=== PATIENT | female | born 1965 | race Caucasian/White ===

== ENCOUNTER 2017-10-26 08:26 | Emergency (ER) | payer SELFPAY ==
[~2017-10-26] VITALS: Ht 167.6 cm; Wt 71.9 kg
[~2017-10-26 08:26] MED LIST: ADVA100A INH; AMIT25; BUTAPOW6 XX; CYMB60CA PO; FIORTAB4 PO; FLEX5TAB PO; FLUR15CA13 PO; LORA1TAB PO; SYNT25TA PO; VICOTAB4 PO
[2017-10-26 08:39] VITALS: BP 125/72; PULSE 115; RESP 18; TEMP 97.2; O2SAT 93
[2017-10-26 08:50] VITALS: BP 125/72; PULSE 114; RESP 16; TEMP 97.6; O2SAT 93
[2017-10-26] MEDS ORDERED: CYMB60CA PO (09:08)
[2017-10-26] MEDS ORDERED: TRAM50TA PO (09:08)
[2017-10-26] MEDS ORDERED: AMIT25TA9 PO (09:08)
[2017-10-26] MEDS ORDERED: CYCL10TA PO (09:08)
[2017-10-26] MEDS ORDERED: PANT40TA3 PO (09:08)
[2017-10-26] MEDS ORDERED: FLUR15CA13 PO (09:08)
[2017-10-26] MEDS ORDERED: RESP: ALBUTEROL 2.5 MG/IPRATROPIUM 0.5 MG NEB (SCH) NEB ONE (09:15)
[2017-10-26] MEDS ORDERED: methylPREDNISolone SOD SUCC 125 MG/2 ML VIAL IV PUSH ONE (09:15)
--- NOTE | 2017-10-26 09:18 | PD ---
HPI Chief Complaint: Respiratory Symptoms Time Seen by Provider: 09:09 Travel History International Travel<30 days: No Contact w/Intl Traveler<30days: No Traveled to known affect area: No History of Present Illness HPI This 52-year-old female says she has been sick for the last 3 days. She has been coughing up phlegm which is been yellow and thick at times. Last night she had some left-sided pleuritic pain was coughing a lot. She has never been diagnosed with COPD 1/2-3/4 pack per day of cigarettes. She has no history of asthma. She did have pneumonia several years ago. She says that 3 days ago she had fever which broke, she says it was 102. There has not been vomiting or diarrhea. There is no radiation of the pain. She has not noted anything that makes the pain worse. The pain is sharp PFSH Past Medical History Anxiety: Yes Depression: Yes Fibromyalgia: Yes Medical other: Yes (chronic pain has pain management) Respiratory: Yes (??) Tetanus Vaccination: Unknown Influenza Vaccination: No ?: Not Menopausal: Yes Tubal Ligation: Yes Past Surgical History Cholecystectomy: Yes Hysterectomy: Yes Other Surgery: Yes (CLEFT PALLET, GALLBLADER.) Social History Alcohol Use: No Tobacco Use: Yes (1/2- 1 PACK A DAY) Substance Use: No Allergies-Medications (Allergen,Severity, Reaction): Coded Allergies: azithromycin (Unverified Allergy, Mild, RASH/NAUSEA, 10/26/17) Reported Meds & Prescriptions Reported Meds & Active Scripts Active Reported Flurazepam (Flurazepam HCl) 15 Mg Cap 1 Cap PO HS Cymbalta DR (Duloxetine HCl) 60 Mg Capdr 60 Mg PO DAILY Amitriptyline (Amitriptyline HCl) 25 Mg Tab 25 Mg PO HS Pantoprazole (Pantoprazole Sodium) 40 Mg Tab 40 Mg PO DAILY Flexeril (Cyclobenzaprine HCl) 10 Mg Tab 10 Mg PO TID Tramadol (Tramadol HCl) 50 Mg Tab 50 Mg PO Q8H PRN Review of Systems General / Constitutional: Positive: Fever, Chills Eyes: No: Diploplia, Blurred Vision HENT: No: Headaches, Vertigo Cardiovascular: Positive: Chest Pain or Discomfort Respiratory: Positive: Cough, Shortness of Breath Gastrointestinal: No: Vomiting, Diarrhea Genitourinary: No: Urgency, Frequency Musculoskeletal: No: Myalgias, Arthralgias Skin: No Rash, No Itching Neurologic: No: Weakness Psychiatric: No: Anxiety Hematologic/Lymphatic: No: Easy Bruising Physical Exam Narrative GENERAL: Well-developed female SKIN: Focused skin assessment warm/dry. HEAD: Atraumatic. Normocephalic. EYES: Pupils equal and round. No scleral icterus. No injection or drainage. ENT: No nasal bleeding or discharge. Mucous membranes pink and moist. NECK: Trachea midline. No JVD. CARDIOVASCULAR: Regular rate and rhythm. No murmur appreciated. RESPIRATORY: No accessory muscle use. There are scattered wheezes breath sounds equal bilaterally. GASTROINTESTINAL: Abdomen soft, non-tender, nondistended. Hepatic and splenic margins not palpable. MUSCULOSKELETAL: No obvious deformities. No clubbing. No cyanosis. No edema. NEUROLOGICAL: Awake and alert. No obvious cranial nerve deficits. Motor grossly within normal limits. Normal speech. PSYCHIATRIC: Appropriate mood and affect; insight and judgment normal. Data Data Last Documented VS Vital Signs Date Time Temp Pulse Resp B/P (MAP) Pulse Ox O2 Delivery O2 Flow Rate FiO2 10/26/17 09:02 107 16 93 Room Air 10/26/17 08:50 97.6 125/72 (89) Orders Orders Complete Blood Count With Diff (10/26/17 09:13) Comprehensive Metabolic Panel (10/26/17 09:13) Blood Culture (10/26/17 09:13) Influenzae A/B Antigen (10/26/17 09:13) Chest, Single Ap (10/26/17 09:13) Methylprednisolone So Succ Inj (Solumedr (10/26/17 09:15) Albuterol-Ipratropium Neb (Duoneb Neb) (10/26/17 09:15) Electrocardiogram (10/26/17 08:46) Ceftriaxone Inj (Rocephin Inj) (10/26/17 11:15) Labs Laboratory Tests Test 10/26/17 09:30 White Blood Count 9.0 TH/MM3 Red Blood Count 4.76 MIL/MM3 Hemoglobin 13.9 GM/DL Hematocrit 41.7 % Mean Corpuscular Volume 87.6 FL Mean Corpuscular Hemoglobin 29.1 PG Mean Corpuscular Hemoglobin Concent 33.2 % Red Cell Distribution Width 12.8 % Platelet Count 325 TH/MM3 Mean Platelet Volume 8.4 FL CBC Comment AUTO DIFF Differential Total Cells Counted 100 Neutrophils % (Manual) 69 % Band Neutrophils % 5 % Lymphocytes % 19 % Monocytes % 6 % Eosinophils % 1 % Neutrophils # (Manual) 6.7 TH/MM3 Differential Comment FINAL DIFF MANUAL Platelet Estimate NORMAL Platelet Morphology Comment NORMAL Red Cell Morphology Comment NORMAL Blood Urea Nitrogen 6 MG/DL Creatinine 0.69 MG/DL Random Glucose 100 MG/DL Total Protein 7.9 GM/DL Albumin 3.8 GM/DL Calcium Level 9.1 MG/DL Alkaline Phosphatase 105 U/L Aspartate Amino Transf (AST/SGOT) 33 U/L Alanine Aminotransferase (ALT/SGPT) 39 U/L Total Bilirubin 0.3 MG/DL Sodium Level 140 MEQ/L Potassium Level 3.6 MEQ/L Chloride Level 107 MEQ/L Carbon Dioxide Level 27.2 MEQ/L Anion Gap 6 MEQ/L Estimat Glomerular Filtration Rate 89 ML/MIN [facility] Medical Decision Making Medical Screen Exam Complete: Yes Emergency Medical Condition: Yes Medical Record Reviewed: Yes Differential Diagnosis Differential includes COPD exacerbation, pneumonia, CHF Narrative Course Chest x-ray is negative for pneumonia. EKG shows sinus rhythm. She has been given neb treatments with some improvement. Impression is COPD exacerbation Diagnosis Primary Impression: COPD exacerbation Scripts Albuterol 18 GM Inh (Ventolin Hfa 18 GM Inh) 90 Mcg/Act Aer 2 PUFF INH Q4H Y for SHORTNESS OF BREATH, #1 INHALER 0 Refills Prov: Christiano Sanchez MD 10/26/17 Prednisone (Prednisone) 20 Mg Tab 20 MG PO DIRECTED, #24 TAB 0 Refills Take 60 MG daily x 4 days, then 40 MG x 4 days, then 20 MG daily x 4 days. Prov: Christiano Sanchez MD 10/26/17 Amoxicillin (Amoxicillin) 500 Mg Cap 500 MG PO TID for Infection for 7 Days, CAP 0 Refills Prov: Christiano Sanchez MD 10/26/17 Disposition: 01 DISCHARGE HOME Condition: Stable Christiano Sanchez MD Oct 26, 2017 09:18
[2017-10-26 09:53] LABS: HEMATOCRIT 41.7 % (35.0-46.0); HEMOGLOBIN 13.9 GM/DL (11.6-15.3); MEAN CELL VOLUME 87.6 FL (80.0-100.0); MEAN CORPUSCULAR HEMOGLOBIN 29.1 PG (27.0-34.0); MEAN CORPUSCULAR HGB CONC 33.2 % (32.0-36.0); MEAN PLATELET VOLUME 8.4 FL (7.0-11.0); PLATELET COUNT 325 TH/MM3 (150-450); RED BLOOD COUNT 4.76 MIL/MM3 (4.00-5.30); RED CELL DISTRIBUTION WIDTH 12.8 % (11.6-17.2)
[2017-10-26 10:00] VITALS: BP 122/69; PULSE 98; RESP 18; O2SAT 94
[2017-10-26 10:05] LABS: CHLORIDE 107 MEQ/L (98-107); SODIUM (NA) 140 MEQ/L (136-145)
[2017-10-26 10:09] LABS: CALCIUM 9.1 MG/DL (8.5-10.1)
[2017-10-26 10:10] LABS: ALBUMIN 3.8 GM/DL (3.4-5.0); BLOOD UREA NITROGEN 6 MG/DL (7-18); GLUCOSE,RANDOM 100 MG/DL (74-106)
[2017-10-26 10:11] LABS: BICARBONATE 27.2 MEQ/L (21.0-32.0)
[2017-10-26 10:13] LABS: ALT (GPT) 39 U/L (10-53); AST (GOT) 33 U/L (15-37); CREATININE 0.69 MG/DL (0.50-1.00); GLOMERULAR FILTRATION RATE 89 ML/MIN (>89)
[2017-10-26 10:14] LABS: TOTAL BILIRUBIN ADULT 0.3 MG/DL (0.2-1.0)
--- NOTE | 2017-10-26 10:14 | RADRPT ---
EXAM DATE/TIME: 10/26/2017 09:30 [facility] COMPARISON: No previous studies available for comparison. INDICATIONS : Cough MEDICAL HISTORY : Fibromyalgia SURGICAL HISTORY : Cholecystectomy. Hysterectomy. ENCOUNTER: Initial ACUITY: 3 days PAIN SCORE: 0/10 LOCATION: Bilateral chest FINDINGS: A single view of the chest demonstrates the lungs to be symmetrically aerated without evidence of mas s, infiltrate or effusion. The cardiomediastinal contours are unremarkable. Osseous structures are intact. CONCLUSION: No acute disease. There is no evidence of pneumonia. Dennis Ayon MD on October 26, 2017 at 10:11 Board Certified Radiologist. This report was verified electronically.
[2017-10-26 10:15] LABS: TOTAL PROTEIN 7.9 GM/DL (6.4-8.2)
[2017-10-26 10:16] LABS: ALKALINE PHOSPHATASE 105 U/L (45-117)
[2017-10-26 10:18] LABS: BANDS 5 % (0-6); LYMPHOCYTES 19 % (9-44); MONOCYTES 6 % (0-8); NEUTROPHIL # MANUAL DIFF 6.7 TH/MM3 (1.8-7.7); POLYS (SEG NEUTROPHILS) 69 % (16-70)
[2017-10-26] MEDS ORDERED: PRED20 PO (11:14)
[2017-10-26] MEDS ORDERED: AMOX500C PO (11:14)
[2017-10-26] MEDS ORDERED: VENTAER INH (11:14)
[2017-10-26] MEDS ORDERED: cefTRIAXone INJ 1,000 MG in SODIUM CHLORIDE 0.9% INJ 100 ML IV ONE (11:15)
[2017-10-26 12:11] VITALS: BP 108/71; PULSE 92; RESP 18; O2SAT 94
--- NOTE | 2017-10-27 00:01 | EKG ---
Date Performed: 10/26/2017 Time Performed: 08:46:01 PTAGE: 52 years EKG: SINUS TACHYCARDIA INDETERMINATE AXIS PATTERN CONSISTENT WITH PULMONARY DISEASE INCOMPLETE R IGHT BUNDLE BRANCH BLOCK ABNORMAL ECG NO PREVIOUS TRACING DOCTOR: Sampson Ricketts Interpretating Date/Time 10/26/2017 23:59:31
== END 2017-10-26 12:49 | disposition home or self-care (01) ==
LOC: PHED 08:26
DX: J44.1 Chronic obstructive pulmonary disease with (acute) exacerbation (principal); R00.0 Tachycardia, unspecified; I45.10 Unspecified right bundle-branch block; R94.31 Abnormal electrocardiogram [ECG] [EKG]; F41.9 Anxiety disorder, unspecified; F32.9 Major depressive disorder, single episode, unspecified; M79.7 Fibromyalgia; F17.200 Nicotine dependence, unspecified, uncomplicated; Z79.899 Other long term (current) drug therapy
CPT/HCPCS: 71045; 80053; 85007; 85027; 87040; 87804; 93005; 94664; 96365; 96375; 99285; J0696; J2930

== ENCOUNTER 2017-11-12 17:22 | Observation (INO) | payer SELFPAY ==
[2017-11-12] VITALS (7 sets, daily range): BP systolic 114–166; BP diastolic 64–97; PULSE 85–111; RESP 16–20; TEMP 96.8–98.7; O2SAT 95–97
[~2017-11-12] VITALS: Ht 167.6 cm; Wt 74.2 kg
[~2017-11-12 17:22] MED LIST changes: -ADVA100A INH; -AMIT25; +AMIT25TA9 PO; +AMOX500C PO; -BUTAPOW6 XX; +CYCL10TA PO; -FIORTAB4 PO; -FLEX5TAB PO; -LORA1TAB PO; +PANT40TA3 PO; +PRED20 PO; -SYNT25TA PO; +TRAM50TA PO; +VENTAER INH; -VICOTAB4 PO
--- NOTE | 2017-11-12 17:30 | PD ---
HPI Chief Complaint: Chest Pain Time Seen by Provider: 17:27 Travel History International Travel<30 days: No Contact w/Intl Traveler<30days: No Traveled to known affect area: No History of Present Illness HPI Patient comes in complaining of about a 3 hour onset of left-sided chest discomfort, 8 out of 10, described as pressure, started to worsen about 45 minutes ago, nonradiating, no alleviating or aggravating factors. Patient describes no associated factors such as fever, rash, nausea, vomiting, diarrhea , abdominal pain, back pain, flank pain. Stated allergy to azithromycin Past medical history significant for cholecystectomy, hysterectomy, COPD, fibromyalgia, tubal ligation, depression, anxiety, still smokes half a pack to 1 pack a day. PFSH Past Medical History Anxiety: Yes Depression: Yes Fibromyalgia: Yes Respiratory: Yes (??) Menopausal: Yes Tubal Ligation: Yes Past Surgical History Cholecystectomy: Yes Hysterectomy: Yes Other Surgery: Yes (CLEFT PALLET, GALLBLADER.) Social History Alcohol Use: No Tobacco Use: Yes (1/2- 1 PACK A DAY) Substance Use: No Allergies-Medications (Allergen,Severity, Reaction): Coded Allergies: azithromycin (Unverified Allergy, Mild, RASH/NAUSEA, 11/12/17) erythromycin base (Verified Allergy, Unknown, 11/12/17) Reported Meds & Prescriptions Reported Meds & Active Scripts Active Reported Metoprolol Tartrate 50 Mg Tab 50 Mg PO DAILY Flurazepam (Flurazepam HCl) 15 Mg Cap 1 Cap PO HS Cymbalta DR (Duloxetine HCl) 60 Mg Capdr 60 Mg PO DAILY Amitriptyline (Amitriptyline HCl) 25 Mg Tab 25 Mg PO HS Pantoprazole (Pantoprazole Sodium) 40 Mg Tab 40 Mg PO DAILY Flexeril (Cyclobenzaprine HCl) 10 Mg Tab 10 Mg PO TID Tramadol (Tramadol HCl) 50 Mg Tab 50 Mg PO Q8H PRN Review of Systems General / Constitutional: No: Fever Eyes: No: Visual changes HENT: No: Headaches Cardiovascular: Positive: Chest Pain or Discomfort Respiratory: No: Shortness of Breath Gastrointestinal: No: Abdominal Pain Genitourinary: No: Dysuria Musculoskeletal: No: Pain Skin: No Rash Neurologic: No: Weakness Psychiatric: No: Depression Endocrine: No: Polydipsia Hematologic/Lymphatic: No: Easy Bruising Physical Exam Narrative GENERAL: SKIN: Warm and dry. HEAD: Atraumatic. Normocephalic. EYES: Pupils equal and round. No scleral icterus. No injection or drainage. ENT: No nasal bleeding or discharge. Mucous membranes pink and moist. NECK: Trachea midline. No JVD. CARDIOVASCULAR: Regular rate and rhythm. RESPIRATORY: No accessory muscle use. Clear to auscultation. Breath sounds equal bilaterally. GASTROINTESTINAL: Abdomen soft, non-tender, nondistended. MUSCULOSKELETAL: Extremities without clubbing, cyanosis, or edema. No obvious deformities. NEUROLOGICAL: Awake and alert. No obvious cranial nerve deficits. Motor grossly within normal limits. Five out of 5 muscle strength in the arms and legs. Normal speech. PSYCHIATRIC: Appropriate mood and affect; insight and judgment normal. Data Data Last Documented VS Vital Signs Date Time Temp Pulse Resp B/P (MAP) Pulse Ox O2 Delivery O2 Flow Rate FiO2 11/12/17 18:10 93 20 114/64 (81) 95 11/12/17 17:34 Nasal Cannula 11/12/17 17:29 98.7 Orders Orders Electrocardiogram (11/12/17:31) B-Type Natriuretic Peptide (11/12/17:31) Ckmb (Isoenzyme) Profile (11/12/17:31) Complete Blood Count With Diff (11/12/17:) Comprehensive Metabolic Panel (11/12/17:) Prothrombin Time / Inr (Pt) (11/12/17:) Act Partial Throm Time (Ptt) (11/12/17:) Troponin I (11/12/17:) Lipase (11/12/17:31) Chest, Single Ap (11/12/17:31) Ecg Monitoring (11/12/17:31) Iv Access Insert/Monitor (11/12/17:) Oximetry (11/12/17:31) Oxygen Administration (11/12/17:) Sodium Chloride 0.9% Flush (Ns Flush) (11/12/17 17:45) Ct Pulmonary Angiogram (11/12/17 17:31) Iohexol 350 Inj (Omnipaque 350 Inj) (11/12/17 18:45) Labs Laboratory Tests Test 11/12/17 17: White Blood Count 16.9 TH/MM3 Red Blood Count 5.17 MIL/MM3 Hemoglobin 15.4 GM/DL Hematocrit 45.8 % Mean Corpuscular Volume 88.5 FL Mean Corpuscular Hemoglobin 29.8 PG Mean Corpuscular Hemoglobin Concent 33.7 % Red Cell Distribution Width 14.0 % Platelet Count 433 TH/MM3 Mean Platelet Volume 8.4 FL Neutrophils (%) (Auto) 62.9 % Lymphocytes (%) (Auto) 29.0 % Monocytes (%) (Auto) 4.2 % Eosinophils (%) (Auto) 1.2 % Basophils (%) (Auto) 2.7 % Neutrophils # (Auto) 10.6 TH/MM3 Lymphocytes # (Auto) 4.9 TH/MM3 Monocytes # (Auto) 0.7 TH/MM3 Eosinophils # (Auto) 0.2 TH/MM3 Basophils # (Auto) 0.5 TH/MM3 CBC Comment DIFF FINAL Differential Comment Prothrombin Time 9.5 SEC Prothromb Time International Ratio 0.9 RATIO Activated Partial Thromboplast Time 24.5 SEC Blood Urea Nitrogen 15 MG/DL Creatinine 0.89 MG/DL Random Glucose 134 MG/DL Total Protein 7.6 GM/DL Albumin 3.5 GM/DL Calcium Level 9.1 MG/DL Alkaline Phosphatase 95 U/L Aspartate Amino Transf (AST/SGOT) 42 U/L Alanine Aminotransferase (ALT/SGPT) 74 U/L Total Bilirubin 0.3 MG/DL Sodium Level 140 MEQ/L Potassium Level 3.6 MEQ/L Chloride Level 104 MEQ/L Carbon Dioxide Level 30.0 MEQ/L Anion Gap 6 MEQ/L Estimat Glomerular Filtration Rate 66 ML/MIN Total Creatine Kinase 60 U/L Troponin I LESS THAN 0.02 NG/ML B-Type Natriuretic Peptide 9 PG/ML Lipase 347 U/L [facility] Medical Decision Making Medical Screen Exam Complete: Yes Emergency Medical Condition: Yes Medical Record Reviewed: Yes Interpretation(s) Today's EKG shows sinus tachycardia 109, incomplete right bundle branch block, slight motion artifact, P pulmonale, but no evidence of any ST elevation [place] pattern noted. EKG was compared with one seen on October 26, 2017 which shows sinus tachycardia with P pulmonale consistent with pulmonary pattern. Differential Diagnosis STEMI versus non-STEMI versus pneumonia versus COPD exacerbation versus CHF versus Narrative Course Leukocytosis of 17,000 however this is most likely reactive as the patient does not have any left shift. No evidence of any anemia, and normal platelet count. Coagulation profile within normal limits Elect lites are all within normal limits, except for random glucose of 134. Normal kidney functions normal liver function Negative first set of cardiac enzymes, negative beta natruretic peptide, AST and ALT are mildly elevated not significantly so AST of 42 and ALT of [address] chest shows no evidence of pulmonary embolism, emphysema without infiltrate Diagnosis Primary Impression: Chest pain rule out [place] Wilian Sanders MD November 12, 2017 17:30
[2017-11-12] MEDS ORDERED: METO50TA PO (17:34)
[2017-11-12 17:43] LABS: AUTOMATED NEUTROPHIL # 10.6 TH/MM3 (1.8-7.7); BASOPHIL # 0.5 TH/MM3 (0-0.2); BASOPHIL % 2.7 % (0.0-2.0); EOSINOPHIL # 0.2 TH/MM3 (0-0.4); EOSINOPHIL % 1.2 % (0.0-4.0); HEMATOCRIT 45.8 % (35.0-46.0); HEMOGLOBIN 15.4 GM/DL (11.6-15.3); LYMPHOCYTE # 4.9 TH/MM3 (1.0-4.8); MEAN CELL VOLUME 88.5 FL (80.0-100.0); MEAN CORPUSCULAR HEMOGLOBIN 29.8 PG (27.0-34.0); MEAN CORPUSCULAR HGB CONC 33.7 % (32.0-36.0); MEAN PLATELET VOLUME 8.4 FL (7.0-11.0); MONO % 4.2 % (0.0-8.0); MONOCYTE # 0.7 TH/MM3 (0-0.9); NEUT % 62.9 % (16.0-70.0); PLATELET COUNT 433 TH/MM3 (150-450); RED BLOOD COUNT 5.17 MIL/MM3 (4.00-5.30); WHITE BLOOD COUNT 16.9 TH/MM3 (4.0-11.0)
[2017-11-12] MEDS ORDERED: SODIUM CHLORIDE 0.9% FLUSH 10 ML FLUSH IVF PRN (17:45)
[2017-11-12 17:49] LABS: CHLORIDE 104 MEQ/L (98-107); SODIUM (NA) 140 MEQ/L (136-145)
[2017-11-12 17:53] LABS: ALBUMIN 3.5 GM/DL (3.4-5.0); CALCIUM 9.1 MG/DL (8.5-10.1); GLUCOSE,RANDOM 134 MG/DL (74-106)
[2017-11-12 17:54] LABS: BLOOD UREA NITROGEN 15 MG/DL (7-18)
[2017-11-12 17:55] LABS: INTERNATIONAL NORMALIZED RATIO 0.9 RATIO; PROTHROMBIN TIME - PATIENT 9.5 SEC (9.8-11.6)
[2017-11-12 17:56] LABS: ALT (GPT) 74 U/L (10-53); AST (GOT) 42 U/L (15-37); CREATININE 0.89 MG/DL (0.50-1.00); GLOMERULAR FILTRATION RATE 66 ML/MIN (>89)
[2017-11-12 17:58] LABS: TOTAL BILIRUBIN ADULT 0.3 MG/DL (0.2-1.0); TOTAL PROTEIN 7.6 GM/DL (6.4-8.2)
--- NOTE | 2017-11-12 17:58 | RADRPT ---
EXAM DATE/TIME: 11/12/2017 17:34 [facility] COMPARISON: No previous studies available for comparison. INDICATIONS : Chest pain this afternoon. MEDICAL HISTORY : Fibromyalgia SURGICAL HISTORY : Cholecystectomy. Hysterectomy. ENCOUNTER: Initial ACUITY: 1 day PAIN SCORE: 5/10 LOCATION: Left chest FINDINGS: A single view of the chest demonstrates the lungs to be symmetrically aerated without evidence of mas s, infiltrate or effusion. The cardiomediastinal contours are unremarkable. Osseous structures are intact. CONCLUSION: No acute disease. Alok Bradley MD on November 12, 2017 at 17:55 Board Certified Radiologist. This report was verified electronically.
[2017-11-12 17:59] LABS: ALKALINE PHOSPHATASE 95 U/L (45-117)
[2017-11-12 18:01] LABS: TROPONIN I LESS THAN 0.02 NG/ML (0.02-0.05)
[2017-11-12] MEDS ORDERED: IOHEXOL 350 MG/ML 10 ML VIAL (for RAD DIAG) IVCONTRAST ONE (18:45)
--- NOTE | 2017-11-12 18:56 | RADRPT ---
EXAM DATE/TIME: 11/12/2017 18:33 [facility] COMPARISON: CHEST SINGLE AP, November 12, 2017, 17:34. INDICATIONS : Chest pain. IV CONTRAST: 75 cc Omnipaque 350 (iohexol) IV RADIATION DOSE: 12.10 CTDIvol (mGy) MEDICAL HISTORY : None SURGICAL HISTORY : Hysterectomy. Cholecystectomy. ENCOUNTER: Initial ACUITY: 1 day PAIN SCALE: 10/10 LOCATION: chest TECHNIQUE: Volumetric scanning of the chest was performed using a pulmonary embolism protocol MIP images were re constructed. Using automated exposure control and adjustment of the mA and/or kV according to patien t size, radiation dose was kept as low as reasonably achievable to obtain optimal diagnostic quality images. DICOM format image data is available electronically for review and comparison. Follow-up recommendations for detected pulmonary nodules are based at a minimum on nodule size and pa tient risk factors according to Fleischner Society Guidelines. FINDINGS: PULMONARY ARTERIES: No filling defects are seen in the pulmonary arteries through the segmental level. LUNGS: There is no consolidation or pneumothorax . No concerning pulmonary nodule is visualized. Mild to mo derate centrilobular emphysema PLEURAE: There is no pleural thickening or pleural effusion. MEDIASTINUM: There is good visualization of the great vessels of the middle mediastinum. No evidence of mediastin al or hilar adenopathy/mass. MUSCULOSKELETAL: Within normal limits for patient age. MISCELLANEOUS: The visualized upper abdominal organs demonstrate no acute abnormality. CONCLUSION: 1. No evidence for pulmonary embolism. 2. Emphysema without infiltrate. Justino Tong MD on November 12, 2017 at 18:47 Board Certified Radiologist. This report was verified electronically.
[2017-11-12] MEDS ORDERED: NITROGLYCERIN 0.4 MG SL 25 TABS/BTL SL PRN (19:30)
[2017-11-12] MEDS ORDERED: ONDANSETRON HCL 4 MG/2 ML VIAL IV PUSH PRN (19:30)
[2017-11-12] MEDS ORDERED: ASPIRIN 81 MG CHEW TAB PO ONE (19:30)
[2017-11-12] MEDS ORDERED: SODIUM CHLORIDE 0.9% FLUSH 10 ML FLUSH IV FLUSH PRN (19:30)
[2017-11-12] MEDS: SODIUM CHLORIDE 0.9% FLUSH 10 ML FLUSH IV FLUSH SCH (20:51)
[2017-11-13] VITALS: BP 137/82; PULSE 87; RESP 20; TEMP 96.7; O2SAT 96
[2017-11-13] MEDS ORDERED: traMADol HCL 50 MG TAB PO ONE (01:00)
[2017-11-13 08:00] VITALS: BP 138/95; PULSE 94; RESP 16; TEMP 98; O2SAT 95
[2017-11-13 09:05] LABS: AUTOMATED NEUTROPHIL # 7.7 TH/MM3 (1.8-7.7); BASOPHIL # 0.2 TH/MM3 (0-0.2); BASOPHIL % 1.7 % (0.0-2.0); EOSINOPHIL # 0.2 TH/MM3 (0-0.4); EOSINOPHIL % 1.9 % (0.0-4.0); HEMATOCRIT 43.2 % (35.0-46.0); HEMOGLOBIN 14.1 GM/DL (11.6-15.3); LYMPH % 24.1 % (9.0-44.0); LYMPHOCYTE # 2.7 TH/MM3 (1.0-4.8); MEAN CELL VOLUME 88.1 FL (80.0-100.0); MEAN CORPUSCULAR HEMOGLOBIN 28.8 PG (27.0-34.0); MEAN CORPUSCULAR HGB CONC 32.7 % (32.0-36.0); MEAN PLATELET VOLUME 8.2 FL (7.0-11.0); MONO % 5.3 % (0.0-8.0); MONOCYTE # 0.6 TH/MM3 (0-0.9); PLATELET COUNT 368 TH/MM3 (150-450); RED BLOOD COUNT 4.91 MIL/MM3 (4.00-5.30); RED CELL DISTRIBUTION WIDTH 14.1 % (11.6-17.2); WHITE BLOOD COUNT 11.4 TH/MM3 (4.0-11.0)
[2017-11-13 09:08] LABS: CHLORIDE 107 MEQ/L (98-107); SODIUM (NA) 142 MEQ/L (136-145)
[2017-11-13 09:11] LABS: CALCIUM 8.6 MG/DL (8.5-10.1)
[2017-11-13 09:12] LABS: ALBUMIN 3.2 GM/DL (3.4-5.0); BICARBONATE 31.5 MEQ/L (21.0-32.0); BLOOD UREA NITROGEN 12 MG/DL (7-18); GLUCOSE,RANDOM 109 MG/DL (74-106)
[2017-11-13 09:15] LABS: ALT (GPT) 64 U/L (10-53); AST (GOT) 31 U/L (15-37); CREATININE 0.65 MG/DL (0.50-1.00); GLOMERULAR FILTRATION RATE 95 ML/MIN (>89)
[2017-11-13 09:17] LABS: TOTAL BILIRUBIN ADULT 0.5 MG/DL (0.2-1.0); TOTAL PROTEIN 6.8 GM/DL (6.4-8.2)
[2017-11-13 09:18] LABS: ALKALINE PHOSPHATASE 82 U/L (45-117)
[2017-11-13] MEDS ORDERED: DULoxetine HCl DR 60 MG CAP PO SCH (11:00)
[2017-11-13] MEDS ORDERED: METOPROLOL TARTRATE 50 MG TAB PO SCH (11:00)
[2017-11-13] MEDS ORDERED: PANTOPRAZOLE SOD 40 MG DELAYED RELEASE TAB PO SCH (11:00)
[2017-11-13 11:21] LABS: BILIRUBIN, URINE NEG (NEG); BLOOD, URINE TRACE (NEG); GLUCOSE,URINE NEG (NEG); KETONE, URINE NEG (NEG); NITRITE,URINE NEG (NEG); URINE COLOR YELLOW (YELLW/STRAW); URINE LEUKOCYTE ESTERASE NEG (NEG)
[2017-11-13 11:26] LABS: WBC, URINE 0-2 /hpf (0-5)
[2017-11-13 11:27] LABS: RBC, URINE 0-3 /hpf (0-3); SQUAMOUS EPITHELIAL CELL URINE 0-5 /hpf (0-5)
--- NOTE | 2017-11-13 11:33 | HHI.HP ---
[facility]Staff Admission Diagnosis CP R/O CT Diagnoses: (1) Chest pain Diagnosis: Principal Chief Complaint: Chest pain Travel History International Travel<30 Days: No Contact w/Intl Traveler <30 Da: No Traveled to Known Affected Are: No History of Present Illness 52-year-old female with known history of hypertension, fibromyalgia who presented the hospital because of acute onset of chest pain. Patient states that her symptoms started approximately 1 PM yesterday afternoon. She was [place] [employer] and got in her car to drive when she started developing a pain in the middle part of her chest that radiated across her left anterior chest and into her back between her shoulder blades. She described it as a pain of 4/10 on a pain scale without any nausea, vomiting, shortness of breath, diaphoresis, lightheadedness, dizziness the pain remained persistent throughout the day and did wax and wane in intensity up to a 8/10 on a pain scale. Patient states that about 531 the pain has not gone away she thought she is having heart attacks as he came to emergency department for evaluation. Patient was given aspirin initially in the emergency department. She had workup done which did not indicate any acute abnormality. Patient was recommended observation chest pain center. Patient states that her pain did finally resolve last night at approximately 11 PM after she was given a tramadol for pain. Patient with risk factors to include age, hypertension, family history. Patient denies any previous cardiac workup. 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 1 Partial hysterectomy Tubal ligation Lipoma removed from right anterior chest Cholecystectomy Reported Medications Reported Meds & Active Scripts Active Reported Metoprolol Tartrate 50 Mg Tab 50 Mg PO DAILY Flurazepam (Flurazepam HCl) 15 Mg Cap 1 Cap PO HS Cymbalta DR (Duloxetine HCl) 60 Mg Capdr 60 Mg PO DAILY Amitriptyline (Amitriptyline HCl) 25 Mg Tab 25 Mg PO HS Pantoprazole (Pantoprazole Sodium) 40 Mg Tab 40 Mg PO DAILY Flexeril (Cyclobenzaprine HCl) 10 Mg Tab 10 Mg PO TID Tramadol (Tramadol HCl) 50 Mg Tab 50 Mg PO Q8H PRN Allergies: Coded Allergies: azithromycin (Unverified Allergy, Mild, RASH/NAUSEA, 11/12/17) erythromycin base (Verified Allergy, Unknown, 11/12/17) Family History Family history was reviewed and indicated that father at age 80 and had hypertension, congestive heart failure. Mother with breast cancer and lung cancer Social History Patient quit smoking cigarettes yesterday. Patient usually smokes one half a pack of cigarettes a day since she was 14 years old. Patient denies any alcohol or illicit drugs. Physical Exam Vital Signs Vital Signs Date Time Temp Pulse Resp B/P (MAP) Pulse Ox O2 Delivery O2 Flow Rate FiO2 11/13/17 08:00 98.0 94 16 138/95 (109) 95 11/13/17 00:00 96.7 87 20 137/82 (100) 96 11/12/17 23:15 95 21 11/12/17 23:00 85 11/12/17 21:42 11/12/17 20:00 96.8 96 20 166/97 (120) 97 11/12/17 19:29 93 16 126/82 (97) 96 Room Air 11/12/17 18:10 93 20 114/64 (81) 95 11/12/17 17:34 96 11/12/17 17:34 Nasal Cannula 11/12/17 17:29 98.7 111 20 141/94 (110) 97 Physical Exam GENERAL: Well-developed, well-nourished, in no acute distress. alert and orientated HEENT: Head is normocephalic without any lesions or masses noted. Facial features are symmetric. Eyes: Pupils equal round reactive to light. Extraocular muscles are intact. Conjunctivae were clear. Oropharyngeal: Pharynx without any erythema edema. Tongue is midline without deviation. Buccal mucosa is moist without any masses or lesions NECK: Supple without any masses. Trachea midline no deviation. No JVD, no bruits are appreciated CARDIAC: Regular rhythm, regular rate. S1/S2 are heard. No murmurs gallops or rubs. LUNGS: Clear to auscultation bilaterally. No wheeze, rhonchi or rales. No use of accessory muscles on inspiration or expiration. ABDOMEN: Soft, nontender. Nondistended. Bowel sounds heard in all 4 quadrants. No organomegaly or masses. Negative rebound, negative guarding EXTREMITIES: No edema, pulses are equal bilaterally. No cyanosis or clubbing NEUROLOGY: Mood and affect appear appropriate. Cranial nerves II through XII grossly intact. Muscle strength 5/5 in upper and lower extremities bilaterally. Deep tendon reflexes are 2+ in upper and lower extremities bilaterally. Laboratory Laboratory Tests Test 11/12/17 17:30 11/12/17 20:33 11/13/17 00:01 11/13/17 08:45 White Blood Count 16.9 11.4 Red Blood Count 5.17 4.91 Hemoglobin 15.4 14.1 Hematocrit 45.8 43.2 Mean Corpuscular Volume 88.5 88.1 Mean Corpuscular Hemoglobin 29.8 28.8 Mean Corpuscular Hemoglobin Concent 33.7 32.7 Red Cell Distribution Width 14.0 14.1 Platelet Count 433 368 Mean Platelet Volume 8.4 8.2 Neutrophils (%) (Auto) 62.9 67.0 Lymphocytes (%) (Auto) 29.0 24.1 Monocytes (%) (Auto) 4.2 5.3 Eosinophils (%) (Auto) 1.2 1.9 Basophils (%) (Auto) 2.7 1.7 Neutrophils # (Auto) 10.6 7.7 Lymphocytes # (Auto) 4.9 2.7 Monocytes # (Auto) 0.7 0.6 Eosinophils # (Auto) 0.2 0.2 Basophils # (Auto) 0.5 0.2 CBC Comment DIFF FINAL DIFF FINAL Differential Comment Prothrombin Time 9.5 Prothromb Time International Ratio 0.9 Activated Partial Thromboplast Time 24.5 Blood Urea Nitrogen 15 12 Creatinine 0.89 0.65 Random Glucose 134 109 Total Protein 7.6 6.8 Albumin 3.5 3.2 Calcium Level 9.1 8.6 Alkaline Phosphatase 95 82 Aspartate Amino Transf (AST/SGOT) 42 31 Alanine Aminotransferase (ALT/SGPT) 74 64 Total Bilirubin 0.3 0.5 Sodium Level 140 142 Potassium Level 3.6 3.8 Chloride Level 104 107 Carbon Dioxide Level 30.0 31.5 Anion Gap 6 4 Estimat Glomerular Filtration Rate 66 95 Total Creatine Kinase 60 Troponin I LESS THAN 0.02 LESS THAN 0.02 LESS THAN 0.02 B-Type Natriuretic Peptide 9 Lipase 347 Test 11/13/17 11:08 Urine Color YELLOW Urine Turbidity CLEAR Urine pH 7.0 Urine Specific [place] 1.010 Urine Protein NEG Urine Glucose (UA) NEG Urine Ketones NEG Urine Occult Blood TRACE Urine Nitrite NEG Urine Bilirubin NEG Urine Urobilinogen 0.2 Urine Leukocyte Esterase NEG Result Diagram: 11/13/17 0845 11/13/17 0845 Imaging Last Impressions Chest X-Ray 11/12/171730 Signed Impressions: Service Date/Time: November 17:34 - CONCLUSION: No acute disease. Alok Bradley MD CT Angiography 11/12/171730 Signed Impressions: Service Date/Time: November 18:33 - CONCLUSION: 1. No evidence for pulmonary embolism. 2. Emphysema without infiltrate. MD Audrey Meeks VTE Risk Assessment Capjeyson VTE Risk Assessment: Mod/High Risk (score >= 2) Caprini Risk Assessment Model Point Value = 1 Point Value = 2 Point Value = 3 Point Value = 5 Age 41-60 Minor surgery BMI > 25 kg/m2 Swollen legs Varicose veins or History of unexplained or recurrent spontaneous Oral contraceptives or hormone replacement Sepsis (< 1 month) Serious lung disease, including pneumonia (< 1 month) Abnormal pulmonary function Acute myocardial infarction Congestive heart failure (< 1 month) History of inflammatory bowel disease Medical patient at bed rest Age 61-74 Arthroscopic surgery Major open surgery (> 45 min) Laparoscopic surgery (> 45 min) Malignancy Confined to bed (> 72 hours) Immobilizing plaster cast Central venous access Age >= 75 History of VTE Family history of VTE Factor V Leiden Prothrombin [id number] Lupus anticoagulant Anticardiolipin antibodies Elevated serum homocysteine Heparin-induced thrombocytopenia Other congenital or acquired thrombophilia Stroke (< 1 month) Elective arthroplasty Hip, pelvis, or leg fracture Acute spinal cord injury (< 1 month) Prophylaxis Regimen Total Risk Factor Score Risk Level Prophylaxis Regimen 0-1 Low Early ambulation 2 Moderate Order ONE of the following: *Sequential Compression Device (SCD) *Heparin 5000 units SQ BID 3-4 Higher Order ONE of the following medications: *Heparin 5000 units SQ TID *Enoxaparin/Lovenox 40 mg SQ daily (WT < 150 kg, CrCl > 30 mL/min) *Enoxaparin/Lovenox 30 mg SQ daily (WT < 150 kg, CrCl > 10-29 mL/min) *Enoxaparin/Lovenox 30 mg SQ BID (WT < 150 kg, CrCl > 30 mL/min) AND/OR *Sequential Compression Device (SCD) 5 or more Highest Order ONE of the following medications: *Heparin 5000 units SQ TID (Preferred with Epidurals) *Enoxaparin/Lovenox 40 mg SQ daily (WT < 150 kg, CrCl > 30 mL/min) *Enoxaparin/Lovenox 30 mg SQ daily (WT < 150 kg, CrCl > 10-29 mL/min) *Enoxaparin/Lovenox 30 mg SQ BID (WT < 150 kg, CrCl > 30 mL/min) AND *Sequential Compression Device (SCD) Assessment and Plan Assessment and Plan Chest pain, atypical -Patient with increased risk factors include age, hypertension, family history of heart disease, tobacco use -Patient has been ruled out for acute coronary event with serial cardiac enzymes that are negative -Serial EKGs were reviewed by myself which did not indicate any acute changes -Myocardial perfusion study was performed and indicated no signs of ischemia, low risk -Patient continued on aspirin, nitroglycerin as needed Hypertension -Home medication continued Fibromyalgia -Home medications continued DVT prevention -Sequential compression devices Discharge disposition Discharge home in stable condition Activity: Ad zhen. Diet: Healthy heart diet Medication per medication reconciliation Follow-up with primary medical doctor in 1 week Brody Rizo November 13, 2017 11:33
[2017-11-13] MEDS: SODIUM CHLORIDE 0.9% FLUSH 10 ML FLUSH IV FLUSH SCH (11:58)
[2017-11-13 12:00] VITALS: BP 150/92; PULSE 102; RESP 18; TEMP 97.1; O2SAT 98
[2017-11-13] MEDS ORDERED: ACETAMINOPHEN 325 MG TAB PO PRN (12:00)
[2017-11-13] MEDS ORDERED: REGADENOSON INJ 0.4 MG/5 ML SYR IV ONE (13:39)
--- NOTE | 2017-11-13 14:53 | RADRPT ---
EXAM DATE/TIME: 11/13/2017 13:32 [facility] COMPARISON: No previous studies available for comparison. INDICATIONS : Mid chest pain for one day. Angina. DOSE: 25.8 mCi Tc99m Myoview at stress. 8.6 mCi Tc99m Myoview at rest. 0.4 mg Lexiscan STRESS SYMPTOMS: Short of breath and flush. EJECTION FRACTION: > 70% MEDICAL HISTORY : Hypertension. SURGICAL HISTORY : Tubal ligation. Hysterectomy. Cholecystectomy. ENCOUNTER: Initial ACUITY: 1 day PAIN SCALE: 8/10 LOCATION: Midsternal chest TECHNIQUE: The patient underwent pharmacologic stress with infusion of prescribed dose. Continuous ECG tracing was monitored during stress. Gated SPECT imaging was performed after stress and conventional SPECT i maging was performed at rest. The examination was performed on a SPECT/CT scanner, both attenuation and non-corrected datasets were reviewed. FINDINGS: The best perfused myocardium is the anterior wall. There is minimal stress-induced ischemia in a sma ll segment mid anterior lateral wall CONCLUSION: Minimal stress-induced redistribution as above, borderline significant.. RISK CATEGORY: Low (<1% Annual Mortality Rate) Tahir Lee MD FACR on November 13, 2017 at 14:46 Board Certified Radiologist. This report was verified electronically.
--- NOTE | 2017-11-13 15:23 | HHI.DCPOC ---
Discharge Care Plan Diagnosis: (1) Chest pain Goals to Promote Your Health * To prevent worsening of your condition and complications * To maintain your health at the optimal level Directions to Meet Your Goals Take your medications as prescribed Follow your dietary instruction Follow activity as directed Keep your appointments as scheduled Take your immunizations and boosters as scheduled If your symptoms worsen call your PCP, if no PCP go to Urgent Care Center or Emergency Room Smoking is Dangerous to Your Health. Avoid second hand smoke Call the 24-hour hour crisis hotline for domestic abuse at Brody Rizo November 13, 2017 15:23
[2017-11-13 16:00] VITALS: BP 139/87; PULSE 79; RESP 18; TEMP 97.4; O2SAT 94
[2017-11-13] MEDS ORDERED: TEMAZEPAM 15 MG CAP PO SCH (21:00)
[2017-11-13] MEDS ORDERED: AMITRIPTYLINE HCL 25 MG TAB PO SCH (21:00)
--- NOTE | 2017-11-14 08:31 | EKG ---
Date Performed: 11/12/2017 Time Performed: 22:32:34 PTAGE: 52 years EKG: Sinus rhythm POSSIBLE RIGHT VENTRICULAR CONDUCTION DELAY BORDERLINE ECG PREVIOUS TRACING : 11/12/2017 20.31 DOCTOR: Ching Mendoza Interpretating Date/Time 11/14/2017 08:29:14
--- NOTE | 2017-11-14 08:36 | EKG ---
Date Performed: 11/12/2017 Time Performed: 20:31:15 PTAGE: 52 years EKG: Sinus rhythm INDETERMINATE AXIS MINIMAL ST DEPRESSION BORDERLINE ECG PREVIOUS TRACING : 10/26/2017 08.46 DOCTOR: Ching Mendoza Interpretating Date/Time 11/14/2017 08:33:13
--- NOTE | 2017-11-14 08:39 | EKG ---
Date Performed: 11/12/2017 Time Performed: 17:28:08 PTAGE: 52 years EKG: SINUS TACHYCARDIA INDETERMINATE AXIS POSSIBLE RIGHT VENTRICULAR CONDUCTION DELAY ABNORMAL R HYTHM ECG INTERPRETATION BASED ON A DEFAULT AGE OF 40 YEARS NO PREVIOUS TRACING DOCTOR: Ching Mendoza Interpretating Date/Time 11/14/2017 08:36:38
--- NOTE | 2017-11-14 09:39 | TR ---
Date Performed: 11/13/2017 Time Performed: 14:00:57 DOCTOR: Brian Tripp DRUG LIST: CLINICAL HISTORY: ANGINA REASON FOR TEST: Angina REASON FOR ENDING: OBSERVATION: CONCLUSION: Lexiscan stress test was performed under standard four minute protocol. Radionuclide was injected one minute prior to ending the test. No electrocardiographic abormalities were present to suggest ischemia. Nuclear imaging and interpretation are pending. COMMENTS:
== END 2017-11-13 18:07 | disposition home or self-care (01) ==
LOC: PHED 17:22 → PHEDA 19:26 → PH3A 21:36
PROVIDERS: ADMIT Hospitalist; ATTEND Hospitalist
DX: R07.89 Other chest pain (principal); Z82.49 Family history of ischemic heart disease and other diseases of the circulatory system; I10 Essential (primary) hypertension; M79.7 Fibromyalgia; F17.210 Nicotine dependence, cigarettes, uncomplicated; Z90.710 Acquired absence of both cervix and uterus; Z88.1 Allergy status to other antibiotic agents; J44.9 Chronic obstructive pulmonary disease, unspecified; F41.9 Anxiety disorder, unspecified; F32.9 Major depressive disorder, single episode, unspecified; Z79.899 Other long term (current) drug therapy; R00.0 Tachycardia, unspecified; I45.10 Unspecified right bundle-branch block; D72.829 Elevated white blood cell count, unspecified; R06.02 Shortness of breath
CPT/HCPCS: 71045; 71275; 78452; 80053; 81001; 82550; 83690; 83880; 84484; 85025; 85610; 85730; 93005; 93017; 99285; A9502; G0378; J2785; Q9967